=== PATIENT | male | born 1935 | race Caucasian/White ===

== ENCOUNTER 2016-12-18 06:15 | Emergency (ER) | payer MEDICARE ==
[~2016-12-18] VITALS: Ht 170.2 cm; Wt 93.8 kg
[~2016-12-18 06:15] MED LIST: BETAMETH DIP0.053 TOP; LISINOP/HCTZ1 TA2 PO; LOPRESSOR 550 MG/TAB PO; METOPROL TAR25 MG PO
[2016-12-18] MEDS ORDERED: PRAVASTATIN10 MG PO (06:37)
[2016-12-18] MEDS ORDERED: AMLODIPINE5 MG PO (06:38)
[2016-12-18] MEDS ORDERED: LEVOTHYROXIN75 MCG PO (06:38)
[2016-12-18] MEDS ORDERED: ASPIRIN81 MG PO (06:39)
[2016-12-18 07:50] LABS: URINE BILIRUBIN - DIPSTICK NEGATIVE (NEGATIVE); URINE BLOOD DIPSTICK TRACE-INTACT (NEGATIVE); URINE CLARITY CLEAR; URINE COLOR YELLOW; URINE GLUCOSE - DIPSTICK NEGATIVE (NEGATIVE); URINE KETONE NEGATIVE (NEGATIVE); URINE LEUK ESTERASE NEGATIVE (NEGATIVE); URINE NITRITE - DIPSTICK NEGATIVE (Negative); URINE PH 5.5 (4.5-8.0); URINE PROTEIN - DIPSTICK NEGATIVE (NEG-TRACE); URINE SPECIFIC GRAVITY 1.025; URINE UROBILINOGEN - DIPSTICK 0.2 E.U./dL (0.2)
[2016-12-18] MEDS ORDERED: ULTRAM50 M1 PO (08:34)
[2016-12-18] MEDS ORDERED: FLEXERIL PO (08:34)
[2016-12-18 08:57] VITALS: BP 135/80
== END 2016-12-18 08:45 | disposition home or self-care (01) ==
LOC: ED 06:15
PROVIDERS: Emergency Medicine
DX: S39.012A Strain of muscle, fascia and tendon of lower back, initial encounter (principal); M79.651 Pain in right thigh; X50.0XXA Overexertion from strenuous movement or load, initial encounter; W19.XXXA Unspecified fall, initial encounter; Y92.009 Unspecified place in unspecified non-institutional (private) residence as the place of occurrence of the external cause

== ENCOUNTER → 2017-12-16 | Outpatient (REF) | payer MEDICARE ==
[~2017-12-16] MED LIST changes: +AMLODIPINE5 MG PO; +ASPIRIN81 MG PO; +FLEXERIL PO; +LEVOTHYROXIN75 MCG PO; +PRAVASTATIN10 MG PO; +ULTRAM50 M1 PO
== END | disposition home or self-care (01) ==
LOC: DI 08:49
PROC: 3E0R33Z Introduction of Anti-inflammatory into Spinal Canal, Percutaneous Approach (ICD-10-PCS; principal; 2017-12-16)
PROC: B01B1ZZ Fluoroscopy of Spinal Cord using Low Osmolar Contrast (ICD-10-PCS; 2017-12-16)
PROC: 3E0R3BZ Introduction of Anesthetic Agent into Spinal Canal, Percutaneous Approach (ICD-10-PCS; 2017-12-16)
DX: M54.5 Low back pain (principal)

== ENCOUNTER 2018-05-01 16:52 | Emergency (ER) | payer MEDICARE ==
[~2018-05-01] VITALS: Ht 170.2 cm; Wt 95.5 kg
[2018-05-01 17:43] LABS: HEMATOCRIT 50.4 % (39.0-50.0); HEMOGLOBIN 16.6 g/dl (14.0-18.0); IMMATURE GRANULOCYTES 0.3 % (0.0-5.0); MEAN CELL VOLUME 91.3 fL CALC (80.0-100.0); MEAN CORPUSCULAR HGB 30.1 pG CALC (26.0-32.0); MEAN CORPUSCULAR HGB CONC 32.9 g/L CALC (32.0-36.0); RED BLOOD COUNT 5.52 mill/uL (4.70-6.10); RED CELL DISTRI WIDTH 12.3 % (11.5-15.5)
[2018-05-01 17:59] LABS: ALBUMIN 4.5 g/dL (3.2-5.0); ALKALINE PHOSPHATASE 53 u/l (38-126); ANION GAP 15 (6-22 (CALC)); BILIRUBIN, TOTAL 1.6 mg/dL (0.0-1.4); BUN 12 mg/dL (8-23); BUN/CREATININE RATIO 15 (12-20 (CALC)); CARBON DIOXIDE 25 mmol/l (22-30); CHLORIDE 105 mmol/l (95-108); CREATININE 0.8 mg/dL (0.7-1.3); GFR > 60 ML/MIN (>=60 (CALC)); GFR FOR AFR.AMER. > 60 ML/MIN (>=60 (CALC)); POTASSIUM 3.6 mmol/l (3.5-5.1); SGOT/AST 26 u/l (19-48); SODIUM 141 mmol/l (137-146); TOTAL PROTEIN 7.4 g/dL (6.3-8.2)
[2018-05-01] MEDS ORDERED: LISINOPRIL20 M1 PO (18:05)
[2018-05-01] MEDS ORDERED: CLOPIDOGREL75 MG PO (18:05)
[2018-05-01 18:33] LABS: URINE BILIRUBIN - DIPSTICK NEGATIVE (NEGATIVE); URINE BLOOD DIPSTICK NEGATIVE (NEGATIVE); URINE COLOR YELLOW; URINE GLUCOSE - DIPSTICK NEGATIVE (NEGATIVE); URINE KETONE NEGATIVE (NEGATIVE); URINE LEUK ESTERASE NEGATIVE (NEGATIVE); URINE NITRITE - DIPSTICK NEGATIVE (Negative); URINE PROTEIN - DIPSTICK NEGATIVE (NEG-TRACE); URINE SPECIFIC GRAVITY 1.025; URINE UROBILINOGEN - DIPSTICK 0.2 E.U./dL (0.2)
[2018-05-01 18:56] VITALS: BP 131/66
== END 2018-05-01 19:03 | disposition home or self-care (01) ==
LOC: ED 16:52
PROVIDERS: Family Medicine
DX: I10 Essential (primary) hypertension (principal); Z95.1 Presence of aortocoronary bypass graft

== ENCOUNTER 2018-06-06 15:18 | Emergency (ER) | payer MEDICARE ==
[~2018-06-06] VITALS: Ht 170.2 cm; Wt 80.0 kg
[~2018-06-06 15:18] MED LIST changes: +CLOPIDOGREL75 MG PO; +LISINOPRIL20 M1 PO
[2018-06-06 15:54] LABS: HEMATOCRIT 50.7 % (39.0-50.0); HEMOGLOBIN 16.8 g/dl (14.0-18.0); IMMATURE GRANULOCYTES 0.3 % (0.0-5.0); MEAN CELL VOLUME 89.6 fL CALC (80.0-100.0); MEAN CORPUSCULAR HGB 29.7 pG CALC (26.0-32.0); MEAN CORPUSCULAR HGB CONC 33.1 g/L CALC (32.0-36.0); NEUT# 4.61 thou/uL (1.82-7.42); RED BLOOD COUNT 5.66 mill/uL (4.70-6.10)
[2018-06-06 16:09] LABS: PROTHROMBIN TIME 10.4 SECONDS (9.0-12.5)
[2018-06-06 16:18] LABS: ALBUMIN 4.5 g/dL (3.2-5.0); ALKALINE PHOSPHATASE 60 u/l (38-126); ANION GAP 13 (6-22 (CALC)); BILIRUBIN, TOTAL 1.4 mg/dL (0.0-1.4); BUN 12 mg/dL (8-23); BUN/CREATININE RATIO 14 (12-20 (CALC)); CARBON DIOXIDE 26 mmol/l (22-30); CHLORIDE 105 mmol/l (95-108); CREATININE 0.8 mg/dL (0.7-1.3); GFR > 60 ML/MIN (>=60 (CALC)); GFR FOR AFR.AMER. > 60 ML/MIN (>=60 (CALC)); POTASSIUM 4.1 mmol/l (3.5-5.1); SGOT/AST 22 u/l (19-48); SODIUM 141 mmol/l (137-146); TOTAL PROTEIN 7.5 g/dL (6.3-8.2)
[2018-06-06 16:30] LABS: MYOGLOBIN 61 ng/mL (0 - 121)
[2018-06-06] MEDS ORDERED: NIFEDIPINE30 MG PO (16:49)
[2018-06-06 17:17] LABS: TSH, 3RD GENERATION 2.78 uIU/mL (0.47 - 4.68)
[2018-06-06 17:50] VITALS: BP 122/74
== END 2018-06-06 17:50 | disposition home or self-care (01) ==
LOC: ED 15:18
PROVIDERS: Emergency Medicine
DX: R00.2 Palpitations (principal); I10 Essential (primary) hypertension; Z95.1 Presence of aortocoronary bypass graft

== ENCOUNTER 2019-05-09 | Emergency (ER) | payer MEDICARE ==
[~2019-05-09] MED LIST changes: +NIFEDIPINE30 MG PO
[2019-05-10 00:44] LABS: HEMATOCRIT 46.7 % (39.0-50.0); HEMOGLOBIN 15.6 g/dl (14.0-18.0); IMMATURE GRANULOCYTES 0.4 % (0.0-5.0); MEAN CELL VOLUME 89.6 fL CALC (80.0-100.0); MEAN CORPUSCULAR HGB 29.9 pG CALC (26.0-32.0); MEAN CORPUSCULAR HGB CONC 33.4 g/L CALC (32.0-36.0); NEUT# 7.1 thou/uL (1.82-7.42); RED BLOOD COUNT 5.21 mill/uL (4.70-6.10); RED CELL DISTRI WIDTH 12.3 % (11.5-15.5)
[2019-05-10 00:49] LABS: ALBUMIN 4.3 g/dL (3.2-5.0); ALKALINE PHOSPHATASE 69 u/l (38-126); AMYLASE 57 u/l (30-110); ANION GAP 11 (6-22 (CALC)); BILIRUBIN, TOTAL 1.1 mg/dL (0.0-1.4); BUN 15 mg/dL (8-23); BUN/CREATININE RATIO 22 (12-20 (CALC)); CARBON DIOXIDE 28 mmol/l (22-30); CHLORIDE 103 mmol/l (95-108); CREATININE 0.7 mg/dL (0.7-1.3); GFR > 60 ML/MIN (>=60 (CALC)); GFR FOR AFR.AMER. > 60 ML/MIN (>=60 (CALC)); LIPASE 212 u/l (23-300); POTASSIUM 3.6 mmol/l (3.5-5.1); SGOT/AST 23 u/l (19-48); SODIUM 139 mmol/l (137-146); TOTAL PROTEIN 7.4 g/dL (6.3-8.2)
[2019-05-10 00:50] LABS: MAGNESIUM 2.4 mg/dL (1.6-2.3)
[2019-05-10 01:19] LABS: TSH, 3RD GENERATION 3.53 uIU/mL (0.47 - 4.68)
[2019-05-10 02:03] LABS: URINE BILIRUBIN - DIPSTICK NEGATIVE (NEGATIVE); URINE BLOOD DIPSTICK NEGATIVE (NEGATIVE); URINE COLOR YELLOW; URINE GLUCOSE - DIPSTICK NEGATIVE (NEGATIVE); URINE KETONE NEGATIVE (NEGATIVE); URINE LEUK ESTERASE NEGATIVE (NEGATIVE); URINE NITRITE - DIPSTICK NEGATIVE (Negative); URINE PROTEIN - DIPSTICK NEGATIVE (NEG-TRACE); URINE UROBILINOGEN - DIPSTICK 0.2 E.U./dL (0.2)
[2019-05-10] MEDS ORDERED: MAGNESIUM296 ML/BTL PO ×2 (02:15)
[2019-05-10] MEDS ORDERED: MIRALAX3350 N1 PO ×2 (02:15)
[2019-09-07] MEDS ORDERED: CLINDAMYCIN300 M1 PO (17:37)
== END 2019-05-10 02:35 | disposition home or self-care (01) ==
PROVIDERS: Family Medicine
DX: K59.01 Slow transit constipation (principal); I10 Essential (primary) hypertension

== ENCOUNTER 2019-08-31 15:51 | Emergency (ER) | payer MEDICARE ==
[~2019-08-31] VITALS: Ht 167.6 cm; Wt 90.0 kg
[~2019-08-31 15:51] MED LIST changes: +MAGNESIUM296 ML/BTL PO; +MIRALAX3350 N1 PO
[2019-08-31] MEDS ORDERED: KEFLEX500 M1 PO (19:54)
[2019-08-31] MEDS ORDERED: BACTROBAN TOP (19:54)
[2019-08-31 20:17] VITALS: BP 135/68
[2019-09-07] MEDS ORDERED: CLINDAMYCIN300 M1 PO (17:37)
== END 2019-08-31 20:44 | disposition home or self-care (01) ==
LOC: ED 15:51
DX: L01.00 Impetigo, unspecified (principal); B35.3 Tinea pedis; I10 Essential (primary) hypertension; I25.2 Old myocardial infarction; B95.61 Methicillin susceptible Staphylococcus aureus infection as the cause of diseases classified elsewhere; Z95.1 Presence of aortocoronary bypass graft

== ENCOUNTER 2019-11-28 15:37 | Emergency (ER) | payer MEDICARE ==
[~2019-11-28] VITALS: Ht 167.6 cm; Wt 90.9 kg
[~2019-11-28 15:37] MED LIST changes: +BACTROBAN TOP; +CLINDAMYCIN300 M1 PO; +KEFLEX500 M1 PO
[2019-11-28] MEDS ORDERED: CIPROFLOXACN500 MG PO (16:24)
[2019-11-28] MEDS ORDERED: KEFLEX500 M1 PO (16:24)
[2019-11-28 17:18] VITALS: BP 156/86
== END 2019-11-28 17:15 | disposition home or self-care (01) ==
LOC: ED 15:37
DX: B35.3 Tinea pedis (principal); L01.00 Impetigo, unspecified; B96.4 Proteus (mirabilis) (morganii) as the cause of diseases classified elsewhere; I10 Essential (primary) hypertension; I25.2 Old myocardial infarction; Z95.1 Presence of aortocoronary bypass graft

== ENCOUNTER 2022-11-01 16:49 | Emergency (ER) | payer MEDICARE ==
[~2022-11-01] VITALS: Ht 167.6 cm; Wt 96.4 kg
[2022-11-01] VITALS (7 sets, daily range): BP systolic 133–148; BP diastolic 62–76
[~2022-11-01 16:49] MED LIST changes: +CIPROFLOXACN500 MG PO
[2022-11-01 17:31] LABS: BASO% 0.4 % (0-3); EOS% 2.2 % (0-8); HEMATOCRIT 53.5 % (39.0-50.0); IMMATURE GRANULOCYTES 0.4 % (0.0-5.0); LYMPH% 21.6 % (15-41); MEAN CELL VOLUME 89.8 fL CALC (80.0-100.0); MEAN CORPUSCULAR HGB CONC 33.5 g/dL CAL (32.0-36.0); NEUT# 5.28 thou/uL (1.82-7.42); NEUT% 69.4 % (42-76); RED BLOOD COUNT 5.96 mill/uL (4.70-6.10); RED CELL DISTRI WIDTH 12.6 % (11.5-15.5)
[2022-11-01 17:33] LABS: HEMOGLOBIN 17.9 g/dl (14.0-18.0)
[2022-11-01 17:47] LABS: INTERNATIONAL NORMALIZED RATIO 1.1 RATIO (0.7-1.3); PROTHROMBIN TIME 10.2 SECONDS (9.0-12.5)
[2022-11-01 17:48] LABS: ALBUMIN 4.9 g/dL (3.2-5.0); ALKALINE PHOSPHATASE 52 u/l (38-126); ANION GAP 14 (6-22 (CALC)); BILIRUBIN, TOTAL 1.7 mg/dL (0.2-1.3); BUN 14 mg/dL (8-23); BUN/CREATININE RATIO 15 (12-20 (CALC)); CARBON DIOXIDE 28 mmol/l (22-30); CHLORIDE 102 mmol/l (95-108); CREATININE 0.9 mg/dL (0.7-1.3); GFR FOR AFR.AMER. > 60 ML/MIN (>=60 (CALC)); GFR OTHER RACES > 60 ML/MIN (>=60 (CALC)); POTASSIUM 3.8 mmol/l (3.5-5.1); SODIUM 140 mmol/l (137-146)
[2022-11-01 17:52] LABS: SGOT/AST 65 u/l (19-48); TOTAL PROTEIN 9.1 g/dL (6.3-8.2)
== END 2022-11-01 18:20 | disposition short-term general hospital (02) ==
LOC: ED 16:49
PROVIDERS: Nurse Practitioner
DX: I21.3 ST elevation (STEMI) myocardial infarction of unspecified site (principal); I25.10 Atherosclerotic heart disease of native coronary artery without angina pectoris; I25.2 Old myocardial infarction; Z95.5 Presence of coronary angioplasty implant and graft; Z95.1 Presence of aortocoronary bypass graft
CPT/HCPCS: J1644

== ENCOUNTER 2023-12-04 17:48 | Observation (INO) | payer MEDICARE ==
[~2023-12-04] VITALS: Ht 167.6 cm; Wt 90.9 kg
[2023-12-04] VITALS (26 sets, daily range): BP systolic 115–206; BP diastolic 48–90
[2023-12-04] MEDS ORDERED: ASPIRIN 81 MG/TAB PO ONE (17:50)
[2023-12-04 18:25] LABS: BASO% 0.7 % (0-3); EOS% 4.4 % (0-8); HEMATOCRIT 45.2 % (39.0-50.0); IMMATURE GRANULOCYTES 0.2 % (0.0-5.0); LYMPH% 30.7 % (15-41); MEAN CELL VOLUME 90.4 fL CALC (80.0-100.0); MEAN CORPUSCULAR HGB CONC 33.2 g/dL CAL (32.0-36.0); MONO% 9.9 % (2-13); NEUT# 3.17 thou/uL (1.82-7.42); NEUT% 54.1 % (42-76); RED CELL DISTRI WIDTH 12.8 % (11.5-15.5)
[2023-12-04 18:36] LABS: ALKALINE PHOSPHATASE 72 u/l (38-126); ANION GAP 8 (6-22 (CALC)); BILIRUBIN, TOTAL 2.3 mg/dL (0.2-1.3); BUN 18 mg/dL (8-23); BUN/CREATININE RATIO 22 (12-20 (CALC)); CARBON DIOXIDE 26 mmol/l (22-30); CHLORIDE 111 mmol/l (95-108); CREATININE 0.8 mg/dL (0.7-1.3); ESTIMATED GFR 86 ML/MIN (>=90 (CALC)); LIPASE 272 u/l (23-300); POTASSIUM 3.4 mmol/l (3.5-5.1); SGOT/AST 42 u/l (19-48); SODIUM 141 mmol/l (137-146); TOTAL PROTEIN 7.1 g/dL (6.3-8.2)
[2023-12-04] MEDS ORDERED: ACETAMINOPHEN 325 MG/TAB PO PRN (20:00)
[2023-12-04] MEDS ORDERED: Zaleplon 5 MG/CAP PO PRN (20:00)
[2023-12-04] MEDS ORDERED: MAGNESIUM HYDROXIDE 30 ML UDC PO PRN (20:00)
[2023-12-04] MEDS ORDERED: BISOPROLOL FUMA10 MG PO (20:58)
[2023-12-04] MEDS ORDERED: COZAAR50 MG PO (20:58)
[2023-12-04] MEDS ORDERED: FUROSEMIDE20 MG PO (20:59)
[2023-12-04] MEDS ORDERED: KLOR-CON M1010 MEQ PO (21:00)
[2023-12-04] MEDS ORDERED: ENOXAPARIN SODIUM 40 MG/0.4 ML SYR SC SCH (21:00)
[2023-12-04] MEDS ORDERED: ISOSORBIDE MONO60 MG PO (21:00)
[2023-12-04] MEDS ORDERED: LIPITOR80 M1 PO (21:01)
[2023-12-05 00:01] VITALS: BP 179/76
[2023-12-05 00:13] VITALS: BP 160/75
[2023-12-05 04:00] VITALS: BP 171/73
[2023-12-05 05:51] LABS: MAGNESIUM 2.3 mg/dL (1.6-2.3)
[2023-12-05 08:01] VITALS: BP 174/61
[2023-12-05] MEDS ORDERED: ISOSORBIDE MONONITRATE 60 MG/TAB PO SCH (09:00)
[2023-12-05] MEDS ORDERED: LOSARTAN Potassium 50 MG/TAB PO SCH (09:00)
[2023-12-05] MEDS ORDERED: CLOPIDOGREL BISULFATE 75 MG/TAB TAB PO SCH (09:00)
[2023-12-05] MEDS ORDERED: ATORVASTATIN CALCIUM 40 MG/TAB PO SCH (21:00)
[2023-12-06] MEDS ORDERED: LEVOTHYROXINE SODIUM 88 MCG TAB PO SCH (06:00)
== END 2023-12-05 09:55 | disposition home or self-care (01) ==
LOC: ED 17:48 → ED-I 19:06 → ED 20:00 → ICU 20:01
PROVIDERS: Nurse Practitioner; ADMIT Internal Medicine; ATTEND Internal Medicine
DX: R07.9 Chest pain, unspecified (principal); I25.10 Atherosclerotic heart disease of native coronary artery without angina pectoris; I11.9 Hypertensive heart disease without heart failure; E11.9 Type 2 diabetes mellitus without complications; E03.9 Hypothyroidism, unspecified; E78.5 Hyperlipidemia, unspecified; I25.2 Old myocardial infarction; Z95.1 Presence of aortocoronary bypass graft; Z95.5 Presence of coronary angioplasty implant and graft; Z87.891 Personal history of nicotine dependence; Z20.822 Contact with and (suspected) exposure to COVID-19
CPT/HCPCS: J1650